=== PATIENT | female | born 1965 | race American Indian/Alaskan Native ===

== ENCOUNTER 2019-04-08 20:39 | Outpatient (CLI) | payer BC ==
--- NOTE | 2019-04-08 22:44 | XRay Report ---
CHEST 2 VIEWS INDICATION / CLINICAL INFORMATION: Cough/Wheezing. COMPARISON: None available. FINDINGS: SUPPORT DEVICES: None. HEART / MEDIASTINUM: No significant abnormality. LUNGS / PLEURA: No significant pulmonary or pleural abnormality. No pneumothorax. ADDITIONAL FINDINGS: No significant additional findings. IMPRESSION: 1. No acute abnormality of the chest. Signer Name: Demian Tavares MD Signed: 04/08/2019 10:39 PM Workstation Name: [id number]
== END 2019-04-08 20:40 | disposition home or self-care (01) ==
LOC: XRAY 20:39
PROVIDERS: ATTEND Family Medicine
DX: R05 Cough (principal); R06.2 Wheezing
CPT/HCPCS: 71046

== ENCOUNTER 2019-04-15 07:50 | Outpatient (CLI) | payer BC ==
--- NOTE | 2019-04-15 08:49 | Mammography Report ---
DIGITAL SCREENING MAMMOGRAM WITH CAD, 04/15/2019 INDICATION: Routine screening mammography. TECHNIQUE: Digital bilateral 2D mammography was obtained in the craniocaudal and mediolateral obliq ue projections. This examination was interpreted with the benefit of Computer-Aided Detection analysi s. COMPARISON: None available. However, she indicated that she had a prior mammogram at [facility] enter FINDINGS: . Breast Density: There are scattered areas of fibroglandular density. Right retroareolar asymmetry and architectural distortion requires comparison with the prior mammogra m or additional imaging. No suspicious calcifications of the right breast. There is no evidence of do minant mass, suspicious calcifications or architectural distortion in the left breast. IMPRESSION: Comparison with a previous mammogram is recommended. We will attempt to obtain a prior mammogram for comparison. If we do not obtain a prior mammogram within 30 days, a revised report will be issued rec ommending a recall for additional imaging. Please be advised that the patient should not schedule an appointment for return until adequate time (at least 2 weeks) has passed for us to obtain the prior m ammogram. Follow up recommendation: Obtain prior study for comparison Category 0: Incomplete. Needs additional imaging evaluation and/or prior mammograms for comparison. A "normal" or negative report should not discourage follow up or biopsy of a clinically significant f inding. A written summary of these findings will be mailed to the patient. The patient will be entered into a mammography reporting system which will generate a reminder letter for the patient's next appointmen t at the appropriate interval. The [employer] recommends yearly mammograms starting at age 40 and continuing as l tatiana as a woman is in good health. Breast MRI is recommended for women with an approximate 20-25% or greater lifetime risk of breast cancer, including women with a strong family history of breast or ova marybeth cancer or who have been treated for Hodgkin's disease. Signer Name: Tera Casper MD Signed: 04/15/2019 8:44 AM Workstation Name: [id number]
== END 2019-04-15 07:51 | disposition home or self-care (01) ==
LOC: MAMMO 07:50
PROVIDERS: ATTEND Family Medicine
DX: Z12.31 Encounter for screening mammogram for malignant neoplasm of breast (principal); N64.89 Other specified disorders of breast
CPT/HCPCS: 77067

== ENCOUNTER 2019-11-26 08:56 | Emergency (ER) | payer BC ==
[2019-11-26 09:04] VITALS: BP 145/84
--- NOTE | 2019-11-26 10:24 | Emergency Department Report ---
ED General Adult HPI - General Chief complaint: Back Pain/Injury Stated complaint: BACK PAIN Time Seen by Provider: 11/26/19 10:17 Source: patient Mode of arrival: Ambulatory Limitations: No Limitations - History of Present Illness Initial comments: 54-year-old -Turk[place] female patient presents with complaints of neck, mid, and low back pain after an incident at work today. 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 She denies any direct trauma to her back or falls. She rates her current pain is 8/10 in severity and describes it as a stinging shocking sensation in her neck and her mid back and a throbbing pain in her low back. She also denies any numbness/tingling/weakness in her limbs, difficulty with ambulation, hematuria, or loss of bladder/bowel control. - Related Data Previous Rx's Medication Instructions Recorded Last Taken Type Diclofenac Sodium 75 mg PO BID PRN #12 tablet. 11/26/19 Unknown Rx methOCARBAMOL [Robaxin TAB] 1,500 mg PO Q8H PRN #21 tablet 11/26/19 Unknown Rx Allergies Allergy/AdvReac Type Severity Reaction Status Date / Time clindamycin [From Cleocin] AdvReac Itching Unverified 04/15/19 07:51 Sulfa (Sulfonamide AdvReac Itching Unverified 04/15/19 07:51 Antibiotics) ED Review of Systems ROS: Stated complaint: BACK PAIN Other details as noted in HPI Constitutional: denies: malaise Cardiovascular: denies: chest pain Gastrointestinal: denies: abdominal pain Musculoskeletal: back pain. denies: arthralgia Neurological: denies: headache, weakness, numbness, paresthesias, abnormal gait ED Past Medical Hx - Past Medical History Previous Medical History?: No - Surgical History Additional Surgical History: Open external fixation - Social History Smoking Status: Never Smoker - Medications Home Medications: Home Medications Medication Instructions Recorded Confirmed Last Taken Type Diclofenac Sodium 75 mg PO BID PRN #12 tablet. 11/26/19 Unknown Rx methOCARBAMOL [Robaxin TAB] 1,500 mg PO Q8H PRN #21 tablet 11/26/19 Unknown Rx ED Physical Exam - General Limitations: No Limitations General appearance: alert, in no apparent distress - Head Head exam: Present: atraumatic, normocephalic - Eye Eye exam: Present: normal appearance - Neck Neck exam: Present: tenderness, full ROM (Paraspinal; no vertebral tenderness noted; no obvious deformity noted) - Respiratory Respiratory exam: Absent: respiratory distress - Cardiovascular Cardiovascular Exam: Present: regular rate, normal rhythm - Extremities Exam Extremities exam: Present: full ROM - Back Exam Back exam: Present: full ROM, paraspinal tenderness (Thoracic; no vertebral tenderness or obvious deformity noted; tenderness also noted in the sacrum), vertebral tenderness (Minimal sacral tenderness without obvious deformity) - Neurological Exam Neurological exam: Present: alert, oriented X3, normal gait - Psychiatric Psychiatric exam: Present: normal affect, normal mood - Skin Skin exam: Present: warm, dry, intact, normal color. Absent: rash ED Course Vital Signs 11/26/19 08:59 Temperature 98.2 F Pulse Rate 88 Respiratory 18 Rate Blood Pressure 145/84 O2 Sat by Pulse 98 Oximetry ED Medical Decision Making - Medical Decision Making 54-year-old -Turkmen female patient presents with complaints of neck, mid, and low back pain after an incident at work today. 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 She denies any direct trauma to her back or falls. She rates her current pain is 8/10 in severity and describes it as a stinging shocking sensation in her neck and her mid back and a throbbing pain in her low back. She also denies any numbness/tingling/weakness in her limbs, difficulty with ambulation, hematuria, or loss of bladder/bowel control. On exam, there are no obvious bony deformities noted in the spine or neck; minimal tenderness to palpation noted of the sacral spine; tenderness to palpation noted over the coccyx; patient has full range of motion of the spine and denies any red flag symptoms. Will treat for muscle strain with anti- inflammatories and muscle relaxers. Recommend follow-up with PCP in 2 to 3 days. Strict return precautions were discussed in detail with patient who verbalizes understanding. Her vitals are normal she is well-appearing and stable for discharge home. Critical care attestation.: If time is entered above; I have spent that time in minutes in the direct care of this critically ill patient, excluding procedure time. ED Disposition Clinical Impression: Back strain Qualifiers: Encounter type: initial encounter Qualified Code(s): S39.012A - Strain of musc le, fascia and tendon of lower back, initial encounter Sprain of cervical neck Qualifiers: Encounter type: initial encounter Qualified Code(s): S13.9XXA - Sprain of joints and ligaments of unspecified parts of neck, initial encounter Disposition: TO HOME OR SELFCARE Is pt being admited?: No Condition: Stable Instructions: Low Back Strain (ED), Cervical Spine Strain (ED) Prescriptions: Diclofenac Sodium 75 mg PO BID PRN #12 tablet. PRN Reason: pain methOCARBAMOL [Robaxin TAB] 1,500 mg PO Q8H PRN #21 tablet PRN Reason: Muscle spasm/tightness Referrals: PRIMARY CARE, [Referring] - 3-5 Days
[2019-11-26] MEDS ORDERED: KETOROLAC 30 MG/1 ML INJ IM ONE (10:49)
== END 2019-11-26 11:33 | disposition home or self-care (01) ==
LOC: ED 08:56
DX: S39.012A Strain of muscle, fascia and tendon of lower back, initial encounter (principal); S16.1XXA Strain of muscle, fascia and tendon at neck level, initial encounter; Z88.1 Allergy status to other antibiotic agents; Z88.2 Allergy status to sulfonamides; X58.XXXA Exposure to other specified factors, initial encounter; Y93.89 Activity, other specified; Y92.89 Other specified places as the place of occurrence of the external cause; Y99.0 Civilian activity done for income or pay
CPT/HCPCS: 96372; 99281; J1885

== ENCOUNTER 2020-01-04 15:05 | Outpatient (CLI) | payer BC ==
[2020-01-04 15:43] LABS: Hematocrit 38.4 % (30.3-42.9); Hemoglobin 12.8 gm/dl (10.1-14.3)
[2020-01-04 16:23] LABS: Hepatitis B Surface Antigen Non-Reactive (Negative); Hepatitis C Virus Antibody Non-Reactive (NonReactive)
[2020-01-11 13:45] LABS: HIV-1 Antibody Differentiation SEE SCANNED RESULT; HIV-2 Antibody Differentiation SEE SCANNED RESULT
== END 2020-01-04 15:06 | disposition home or self-care (01) ==
LOC: LAB 15:05
PROVIDERS: ATTEND Obstetrics & Gynecology
DX: Z20.2 Contact with and (suspected) exposure to infections with a predominantly sexual mode of transmission (principal)
CPT/HCPCS: 36415; 80074; 83036; 85014; 85018; 86592; 86689

== ENCOUNTER 2021-05-09 10:42 | Outpatient (CLI) | payer BC ==
[2021-05-09 11:47] LABS: Alanine Aminotransferase 25 units/L (7-56); Albumin 4.2 g/dL (3.9-5); Blood Urea Nitrogen 16 mg/dL (7-17); Chol/HDL Ratio 3.51 %; HDL Cholesterol 56 mg/dL (40-59); Hemolysis Index 8; LDL Cholesterol,Direct 132 mg/dL (50-130)
[2021-05-09 11:50] LABS: BUN/Creatinine Ratio 32
[2021-05-09 17:01] LABS: Creatinine,Urine 125.5 mg/dL (0.1-20.0); Protein/Creatinine Ratio,Urine 0.24
[2021-05-09 17:25] LABS: Microalbumin/Creatinine Ratio 9.5 ug/mg
== END 2021-05-09 10:43 | disposition home or self-care (01) ==
LOC: LAB 10:42
PROVIDERS: ATTEND Family Medicine
DX: E11.9 Type 2 diabetes mellitus without complications (principal); E78.5 Hyperlipidemia, unspecified
CPT/HCPCS: 36415; 80053; 80061; 82043; 82570; 83036; 84156

== ENCOUNTER 2021-05-18 08:55 | Outpatient (CLI) | payer BC ==
--- NOTE | 2021-05-19 08:06 | Mammography Report ---
DIGITAL SCREENING MAMMOGRAM WITH CAD, 05/18/2021 CLINICAL INFORMATION / INDICATION: Routine screening mammography. SCREENING MAMMOGRAM TECHNIQUE: Digital bilateral 2D mammography was obtained in the craniocaudal and mediolateral obliqu e projections. This examination was interpreted with the benefit of Computer-Aided Detection analysis . COMPARISON: 04/15/2019 FINDINGS: Breast Density: There are scattered areas of fibroglandular density. No dominant mass, suspicious calcifications, or architectural distortion in either breast. IMPRESSION: No mammographic evidence of malignancy. Follow up recommendation: Routine yearly BI-RADS Category 1: NEGATIVE A "normal" or negative report should not discourage follow up or biopsy of a clinically significant f inding. A written summary of these findings will be mailed to the patient. The patient will be entered into a mammography reporting system which will generate a reminder letter for the patient's next appointmen t at the appropriate interval. The [employer] recommends yearly mammograms starting at age 40 and continuing as l tatiana as a woman is in good health. Breast MRI is recommended for women with an approximate 20-25% or greater lifetime risk of breast cancer, including women with a strong family history of breast or ova marybeth cancer or who have been treated for Hodgkin's disease. Signer Name: Dontae Harris MD Signed: 05/19/2021 8:01 AM Workstation Name: [id number]
== END 2021-05-18 08:56 | disposition home or self-care (01) ==
LOC: MAMMO 08:55
PROVIDERS: ATTEND Family Medicine
DX: Z12.31 Encounter for screening mammogram for malignant neoplasm of breast (principal)
CPT/HCPCS: 77067